=== PATIENT | male | born 1950 | race Caucasian/White ===

== ENCOUNTER 2023-02-08 15:56 | Emergency (ER) | payer MEDICARE, SELFPAY ==
[2023-02-08 16:07] VITALS: BP 186/84; PULSE 52; RESP 17; TEMP 36.6; O2SAT 98; BMI 31.5
[2023-02-08 17:09] LABS: Basophils # 0.1 10^3/uL (0.0-0.1); Basophils % 1.2 %; Eosinophils % 0.6 %; Hematocrit 43.3 % (37-53); Lymphocytes # 1.3 10^3/uL (0.8-4.8); Lymphocytes % 19.5 %; Mean Corpuscular HGB Conc 31.9 g/dL (30-55); Mean Corpuscular Hemoglobin 30.5 pg (27-33); Mean Corpuscular Volume 95.8 fl (82-101); Mean Platelet Volume 9.8 fL (7.4-10.4); Monocytes # 0.4 10^3/uL (0.2-0.9); Monocytes % 6.3 %; Neutrophils # 4.84 10^3/uL (1.8-7.7); Neutrophils % 72.1 %; Nucleated Red Blood Cells % 0 %; Platelet Count 207 10^3/cmm (157-399); Red Blood Count 4.52 10^6/uL (3.85-5.65); White Blood Count 6.71 10^3/uL (3.29-11.43)
[2023-02-08 17:30] LABS: Alanine Aminotransferase 31 U/L (0-41); Albumin Level 4.1 g/dL (3.5-5.2); Alkaline Phosphatase 50 U/L (40-130); Anion Gap 14.3 (5-19); Aspartate Amino Transferase 34 U/L (0-40); Blood Urea Nitrogen 9 mg/dL (8-23); Calcium 9.4 mg/dL (8.5-10.5); Carbon Dioxide 25 mmol/L (22-29); Chloride 104 mmol/L (98-107); Creatinine Clr Calc Pharmacy 100.2848; Globulin 2.7 g/dL (1.3-4.6); Glucose 97 mg/dL (65-115); Lipase 20 U/L (13-60); Osmolality Calculated 287 mOsm/kg (285-295); Potassium 4.3 mmol/L (3.5-5.1); Sodium 139 mmol/L (136-145); Total Bilirubin 0.8 mg/dL (0.15-1.2); Total Protein 6.8 g/dL (6.6-8.7)
[2023-02-08 17:34] LABS: Lactic Sepsis W/Reflex 0.9 mmol/L (0.5-2.2)
--- NOTE | 2023-02-08 17:41 | CTR_ITS ---
PROCEDURE INFORMATION: Exam: CT Abdomen And Pelvis With Contrast Exam date and time: 02/08/2023 6:05 PM Age: 72 years old Clinical indication: Abdominal pain; Generalized; Patient HX: Abd pain with constipation; Additional info: Constipation and right lower quadrant abdominal pain TECHNIQUE: Imaging protocol: Computed tomography of the abdomen and pelvis with contrast. Radiation optimization: All CT scans at this facility use at least one of these dose optimization techniques: automated exposure control; mA and/or kV adjustment per patient size (includes targeted exams where dose is matched to clinical indication); or iterative reconstruction. Contrast material: OMNI 350; Contrast volume: 100 ml; Contrast route: INTRAVENOUS (IV); REPORTING DATA: Count of CT and Cardiac NM exams in prior 12 months: This patient has received 0 known CTs and 0 known cardiac nuclear medicine studies in the 12 months prior to the current study. COMPARISON: MR abdomen wo/w con* [id number] 01/21/2018 10:37 AM RADIATION DOSE METRICS: Total DLP (mGy-cm): 904.46 FINDINGS: Lungs: No significant infiltrate or effusion is seen within the lung bases. Diaphragm: Small hiatal hernia, less prominent than 2018 exam. Liver: Normal. No mass. Gallbladder and bile ducts: Normal. No calcified stones. No ductal dilation. Pancreas: Normal. No ductal dilation. Spleen: Normal. No splenomegaly. Adrenal glands: Normal. No mass. Kidneys and ureters: Small rounded hypodense renal cortical foci suggestive of small renal cysts when correlated with previous exam. Tiny nonobstructing right renal calculus. No hydronephrosis or obstruction or perinephric stranding. Stomach and bowel: Mild colonic diverticulosis. No CT findings of diverticulitis or focal inflammatory change. Moderate stool volume. No small bowel dilatation or obstruction. No abnormal bowel wall thickening. No abnormal mesenteric stranding. Appendix: The appendix is visualized. No CT findings of appendicitis. Intraperitoneal space: No free fluid or ascites. No free air. Vasculature: [id number] atherosclerotic vascular disease. No significant aneurysmal dilatation of the abdominal. Major vascular segments appear patent. Lymph nodes: Unremarkable. No enlarged lymph nodes. Urinary bladder: Incomplete urinary bladder distention with wall thickening. Reproductive: Moderate prostate gland enlargement with mild impression on the base of the bladder. Bones/joints: Degenerative change with component of degenerative disc disease lumbar spine with mild levoscoliosis. Soft tissues: Mild umbilical hernia of fat and small inguinal hernias of fat, as noted with prior exam. CT/CT abdomen pelvis w con* [id number] IMPRESSION: 1. Tiny nonobstructing right renal calculus and suggestion of small renal cortical cysts when correlated with prior exam. No additional follow-up required. 2. Moderate prostate gland enlargement. 3. Urinary bladder wall thickening, which may be related to incomplete distention though can be associated with component of bladder outlet or bladder infection. 4. Mild colonic diverticulosis. Moderate stool volume which can be associated with constipation. 5. Small hiatal hernia, less prominent than previous exam of 2018. Mild umbilical hernia of fat.
[2023-02-08 17:42] LABS: Add Urine Microscopic? NO; Charge for UA Resulting for Rev
--- NOTE | 2023-02-08 17:44 | ED_ITS ---
HPI - Abdominal Pain 2 General: Chief Complaint: Abdominal Pain Stated Complaint: Dehydrated,constipated Time Seen by Provider: 02/08/23 17:05 History of Present Illness: Patient is a 72-year-old male with no significant past medical history who presents to the emergency department for evaluation of abdominal pain and constipation. Patient reports that he has been constipated for approximately 1 week. Patient reports that he is trialed MiraLAX, milk of magnesia, and prune juice with little relief of symptoms. Patient states that his constipation has worsened and he is now starting to have intermittent nausea and vomiting. Patient endorses 1 episode of emesis today. Patient currently rates his abdominal pain as a 5 out of 10 in severity that he describes as a cramping-like sensation. The majority of his pain is located in his right lower quadrant. Patient states that he is able to pass gas. He denies fever, chills, cough, congestion, dysuria, hematuria, chest pain, shortness of breath, palpitations, lightheadedness, dizziness, hematemesis, melena, hematochezia, or any other associated symptoms. Patient reports that he has had similar symptoms in the past that required admission. No other complaints at this time. Associated Symptoms: Reports constipation, nausea and vomiting; Denies chills, diarrhea, dysuria, fever(s) and hematuria Review of Systems 2 General: Reports: 10 or more systems reviewed and unremarkable except in HPI and below Const: Denies: fever(s), chills or body aches Eyes: Denies: change in vision or blurry vision ENMT: Denies: throat pain, ear or mastoid pain, ear discharge or nasal congestion Card: Denies: chest pain, palpitations or irregular heart rhythm Resp: Denies: dyspnea, productive cough, non-productive cough or wheezing GI: Reports: abdominal pain, nausea, vomiting and constipation; Denies: diarrhea : Denies: flank pain, dysuria or hematuria Musc: Denies: neck pain, back pain or extremity pain Skin/Breast: Denies: rash Neuro: Denies: headache(s), numbness in extremities, dizziness or vertigo Physical Exam 2 Const: COMMON NORMALS: no acute distress, average body habitus, patient oriented x3, no limitations and alert HENMT: COMMON NORMALS: normocephalic, atraumatic, moist oral mucous membranes and oropharynx normal HEAD & SCALP: normocephalic and atraumatic Eye: COMMON NORMALS: Equal, round and reactive pupils present, EOMs intact bilaterally, conjunctivae normal and no scleral icterus CONJUNCTIVA: Yes conjunctivae normal PUPIL: Yes Equal, round and reactive pupils present Neck/C-Spine: COMMON NORMALS: full ROM Chest: COMMONS NORMALS: normal inspection of the chest Resp: COMMON NORMALS: normal respiratory effort, No retractions, No use of accessory muscles and clear to auscultation bilaterally AUSCULTATION: clear to auscultation bilaterally Cardio: COMMON NORMALS: regular rate, regular rhythm, No gallops present (Cardio), No clicks present (Cardio) and No rub (Cardio) RATE: regular rate RHYTHM: regular rhythm OTHER: Systolic murmur is heard best over the aortic position. GI: OTHER: Hyperactive bowel sounds in all 4 quadrants. McBurney's point tenderness noted to palpation. No Montano sign, Rovsing sign, or peritoneal signs noted. No evidence of rebound tenderness. Extremity: OTHER: Moving bilateral upper and lower extremities without weakness or deficit. Neuro: COMMON NORMALS: patient oriented x3 SENSORIUM/ORIENTATION: Yes alert OTHER: No focal neurological deficits noted on examination. Sensation intact to the bilateral upper and lower extremities Course 2 Vital Signs: Vital signs: Vital Signs Temperature 98 F 02/08/23 16:07 Pulse Rate 52 L 02/08/23 16:07 Respiratory Rate 17 02/08/23 16:07 Blood Pressure 186/84 02/08/23 16:07 Pulse Oximetry 98 02/08/23 16:07 Oxygen Delivery Me thod Room Air 02/08/23 16:07 MDM - Abdominal Pain Medical Decision Making Patient is a 72-year-old male with no significant past medical history who presents to the emergency department for evaluation of abdominal pain and constipation. On physical examination patient is nontoxic and in no acute distress. Patient's heart rate did remain in the 50s throughout the ED course. Patient states that he normally has a low heart rate. EKG sinus bradycardia with nonspecific T wave abnormalities. Patient denies chest pain, palpitations, lightheadedness, dizziness, or shortness of breath of any kind. CBC, CMP, lipase, and urinalysis all grossly unremarkable. CT of the abdomen pelvis with contrast showed Tiny nonobstructing right renal calculus and suggestion of small renal cortical cysts when correlated with prior exam. No additional follow-up required. Moderate prostate gland enlargement. Urinary bladder wall thickening, which may be related to incomplete distention though can be associated with component of bladder outlet or bladder infection. Urinalysis showed no evidence of urinary tract infection. Mild colonic diverticulosis. Moderate stool volume which can be associated with constipation. Small hiatal hernia, less prominent than previous exam of 2018. Mild umbilical hernia of fat. Based off history and physical examination I do not believe the patient symptoms are emergent and warrant further emergent evaluation at this time. Symptoms likely related to constipation. I will treat with mag citrate and have the patient follow-up with his primary care provider. A prescription of magnesium citrate was sent to your pharmacy be picked up. Take medication as prescribed. See handout over generalize instructions. Increase oral hydration. Call your primary care provider tomorrow with an update of your symptoms and to schedule appointment for further management/evaluation. Return to the emergency department in the next 12 to 24 hours if any rapid or worsening symptoms to include but not limited to worsening abdominal pain, increased vomiting, fever, unable to have a bowel movement after taking the magnesium citrate, or as needed. Patient stated understanding of all discharge instructions was agreeable to plan of care. I discussed the patient's history, exam, and all findings with Dr. Jensen in the emergency department who agreed my assessment and plan. He did not feel the patient required admission or further evaluation at this time. Differential diagnosis includes but is not limited to constipation, obstruction, appendicitis, urinary tract infection, pancreatitis, nephrolithiasis, gastroenteritis Lab Data 02/08/23 17:00 02/08/23 17:00 Labs/Radiology: Radiology Impressions Abdomen/Pelvis CT 02/08/23 17:41 IMPRESSION: 1. Tiny nonobstructing right renal calculus and suggestion of small renal cortical cysts when correlated with prior exam. No additional follow-up required. 2. Moderate prostate gland enlargement. 3. Urinary bladder wall thickening, which may be related to incomplete distention though can be associated with component of bladder outlet or bladder infection. 4. Mild colonic diverticulosis. Moderate stool volume which can be associated with constipation. 5. Small hiatal hernia, less prominent than previous exam of 2018. Mild umbilical hernia of fat. Laboratory Results WBC 6.71 10^3/uL (3.29-11.43) 02/08/23 17:00 RBC 4.52 10^6/uL (3.85-5.65) 02/08/23 17:00 Hgb 13.80 g/dL (11.27-16.99) 02/08/23 17:00 Hct 43.3 % (37-53) 02/08/23 17:00 MCV 95.8 fl (82-101) 02/08/23 17:00 MCH 30.5 pg (27-33) 02/08/23 17:00 MCHC 31.9 g/dL (30-55) 02/08/23 17:00 RDW 13.0 % (12.1-15.1) 02/08/23 17:00 Plt Count 207 10^3/cmm (157-399) 02/08/23 17:00 MPV 9.8 fL (7.4-10.4) 02/08/23 17:00 Neut % (Auto) 72.1 % 02/08/23 17:00 Lymph % (Auto) 19.5 % 02/08/23 17:00 [place] % (Auto) 6.3 % 02/08/23 17:00 Eos % (Auto) 0.6 % 02/08/23 17:00 Baso % (Auto) 1.2 % 02/08/23 17:00 Neut # (Auto) 4.84 10^3/uL (1.8-7.7) 02/08/23 17:00 Lymph # (Auto) 1.3 10^3/uL (0.8-4.8) 02/08/23 17:00 [place] # (Auto) 0.4 10^3/uL (0.2-0.9) 02/08/23 17:00 Eos # (Auto) 0.0 10^3/uL (0.0-0.8) 02/08/23 17:00 Baso # (Auto) 0.1 10^3/uL (0.0-0.1) 02/08/23 17:00 Nucleated RBC % (auto) 0 % 02/08/23 17:00 Nucleated RBCs # 0.0 /100WBC 02/08/23 17:00 Sodium 139 mmol/L (136-145) 02/08/23 17:00 Potassium 4.3 mmol/L (3.5-5.1) 02/08/23 17:00 Chloride 104 mmol/L (98-107) 02/08/23 17:00 Carbon Dioxide 25 mmol/L (22-29) 02/08/23 17:00 Anion Gap 14.3 (5-19) 02/08/23 17:00 BUN 9 mg/dL (8-23) 02/08/23 17:00 Creatinine 0.7 mg/dL (0.7-1.2) 02/08/23 17:00 GFR Calculation Not Reportable 02/08/23 17:00 Glucose 97 mg/dL (65-115) 02/08/23 17:00 Calculated Osmolality 287 mOsm/kg (285-295) 02/08/23 17:00 Lactic Acid 0.9 mmol/L (0.5-2.2) 02/08/23 17:00 Calcium 9.4 mg/dL (8.5-10.5) 02/08/23 17:00 Total Bilirubin 0.8 mg/dL (0.15-1.2) 02/08/23 17:00 AST 34 U/L (0-40) 02/08/23 17:00 ALT 31 U/L (0-41) 02/08/23 17:00 Alkaline Phosphatase 50 U/L (40-130) 02/08/23 17:00 Total Protein 6.8 g/dL (6.6-8.7) 02/08/23 17:00 Albumin 4.1 g/dL (3.5-5.2) 02/08/23 17:00 Globulin 2.7 g/dL (1.3-4.6) 02/08/23 17:00 Lipase 20 U/L (13-60) 02/08/23 17:00 Urine Color Colorless (Yellow) 02/08/23 17:20 Urine Appearance Clear (CLEAR) 02/08/23 17:20 Urine pH 7 (5-7) 02/08/23 17:20 Ur Specific [place] 1.000 (1.005-1.030) L 02/08/23 17:20 Urine Protein Neg (Negative) 02/08/23 17:20 Urine Glucose (UA) Norm (Normal) 02/08/23 17:20 Urine Ketones Negative (Negative) 02/08/23 17:20 Urine Blood Neg (Negative) 02/08/23 17:20 Urine Nitrate Negative (Negative) 02/08/23 17:20 Urine Bilirubin Neg (Negative) 02/08/23 17:20 Urine Urobilinogen Norm mg/dL (Negative) 02/08/23 17:20 Ur Leukocyte Esterase Negative (Negative) 02/08/23 17:20 All radiology interpretation(s) finalized by discharge Discharge Plan Discharge Patient Disposition: Home Clinical Impression: Constipation Condition: Stable Prescriptions: New magnesium citrate Solution 150 ml PO ONCE Qty: 296 0RF Discharge Orders: Discharge ED (Routine); Ordered 02/08/23 Ordered By: Sekou Lakhani Referrals: Stephen Krishna MD [Primary Care Provider] - Patient Instructions: Constipation (ED) Activity Restrictions/Additional Instructions: A prescription of magnesium citrate was sent to your pharmacy be picked up. Take medication as prescribed. See handout over generalize instructions. Increase oral hydration. Call your primary care provider tomorrow with an update of your symptoms and to schedule appointment for further management/evaluation. Return to the emergency department in the next 12 to 24 hours if any rapid or worsening symptoms to include but not limited to worsening abdominal pain, increased vomiting, fever, unable to have a bowel movement after taking the magnesium citrate, or as needed. Coding Level of Care Code ED [facility]anger for Konstantin Wilkins
[2023-02-08 17:51] LABS: Bilirubin Urine Neg (Negative); Blood Urine Neg (Negative); Glucose Urine UA Norm (Normal); Ketones Urine Negative (Negative); Leukocyte Esterase Urine Negative (Negative); Nitrate Urine Negative (Negative); Protein Urine Neg (Negative); Urine Appearance Clear (CLEAR); Urine Color Colorless (Yellow); Urobilinogen Urine Norm (Negative); pH Urine 7 (5-7)
[2023-02-08] MEDS: iohexol 350 mg/mL 500 mL Btl (per mL) IV (18:09)
--- NOTE | 2023-02-08 19:36 | ECG_ITS ---
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 Measurements Intervals [place] Rate: 50 P: 10 DC: 159 QRS: 26 QRSD: 86 T: 14 QT: 443 QTc: 404 Interpretive Statements SINUS BRADYCARDIA NONSPECIFIC T-WAVE ABNORMALITY Compared to ECG 12/05/2017 07:06:26 T-wave abnormality now present Electronically Signed On 02-09-2023 5:55:50 PAROLE AGENT by Fanny Pruitt M.D. [id number]
== END 2023-02-08 20:09 | disposition home or self-care (01) ==
PROVIDERS: Physician Assistant; Emergency Provider Physician Assistant; PCP Family Medicine
DX: K59.00 Constipation, unspecified (principal); N20.0 Calculus of kidney; K57.30 Diverticulosis of large intestine without perforation or abscess without bleeding; K44.9 Diaphragmatic hernia without obstruction or gangrene
CPT/HCPCS: 36415; 74177; 80053; 81003; 83605; 83690; 85025; 93005; 99285; Q9967

== ENCOUNTER 2023-08-12 17:37 | Emergency (ER) | payer MEDICARE, SELFPAY ==
[2023-08-12 17:38] VITALS: BP 148/73; PULSE 59; RESP 14; TEMP 37.1; O2SAT 98
--- NOTE | 2023-08-12 17:39 | XRR_ITS ---
PROCEDURE INFORMATION: Exam: XR Chest Exam date and time: 08/12/2023 5:59 PM Age: 72 years old Clinical indication: Other: Syncope TECHNIQUE: Imaging protocol: Radiologic exam of the chest. Views: 1 view. COMPARISON: CR XR chest 2V* [id number] 12/05/2017 8:01 AM FINDINGS: Lungs: No consolidation. Subtle linear opacities in the left lung base are stable and may represent atelectasis or scarring. Pleural spaces: No pleural effusion or pneumothorax. Heart/Mediastinum: The cardiomediastinal silhouette is within normal limits. Bones/joints: No acute osseous abnormalities are seen. XR/XR chest 1V portable [id number] IMPRESSION: No acute cardiopulmonary disease.
[2023-08-12 19:01] LABS: Basophils # 0.1 10^3/uL (0.0-0.1); Basophils % 0.8 %; Eosinophils % 0.1 %; Hematocrit 43.7 % (37-53); Lymphocytes # 0.6 10^3/uL (0.8-4.8); Lymphocytes % 6.7 %; Mean Corpuscular Hemoglobin 31.8 pg (27-33); Mean Corpuscular Volume 96.5 fl (82-101); Mean Platelet Volume 9.9 fL (7.4-10.4); Monocytes # 0.4 10^3/uL (0.2-0.9); Monocytes % 4.5 %; Neutrophils % 87.7 %; Nucleated Red Blood Cells % 0 %; Platelet Count 177 10^3/cmm (157-399); Red Blood Count 4.53 10^6/uL (3.85-5.65); Red Cell Distribution Width 13.3 % (12.1-15.1); White Blood Count 9.12 10^3/uL (3.29-11.43)
--- NOTE | 2023-08-12 19:10 | ED_ITS ---
HPI - Syncope 2 General: Chief Complaint: Syncope Stated Complaint: syncope Time Seen by Provider: 08/12/23 19:00 History of Present Illness: 72-year-old male with no known medical p mercedez who presents to the emergency room with weakness, malaise and a near syncopal episode as he was coming into the emergency room. He had not been feeling well all day today. He became very lightheaded and his eyes went dark he says. He did not pass out completely and family was there to help him down. He says he has had multiple tick bites recently. Otherwise no chest pain. No abdominal pain. He did have a fever of 100.7 at home. No cough. No shortness of breath. No nausea or vomiting. No dysuria. No lower extremity swelling. No altered mental status. No focal motor deficits. Review of Systems 2 Narrative: Constitutional symptoms: Negative except as documented in HPI. Skin symptoms: Negative except as documented in HPI. Eye symptoms: Negative except as documented in HPI. ENMT symptoms: Negative except as documented in HPI. Respiratory symptoms: Negative except as documented in HPI. Cardiovascular symptoms: Negative except as documented in HPI. Gastrointestinal symptoms: Negative except as documented in HPI. Genitourinary symptoms: Negative except as documented in HPI. Musculoskeletal symptoms: Negative except as documented in HPI. Neurologic symptoms: Negative except as documented in HPI. Psychiatric symptoms: Negative except as documented in HPI. Endocrine symptoms: Negative except as documented in HPI. Physical Exam 2 Narrative: EXAM NARRATIVE: General: Alert, no acute distress. Skin: Warm, dry. Head: Normocephalic, atraumatic. Neck: Supple, trachea midline. Eye: Extraocular movements are intact. Ears, nose, mouth and throat: Tacky oral mucosa Cardiovascular: Regular, Normal peripheral perfusion. Respiratory: Lungs are clear to auscultation, respirations are non-labored, breath sounds are equal, Symmetrical chest wall expansion. Gastrointestinal: Soft, Nontender, Non distended, Normal bowel sounds. Musculoskeletal: Normal ROM, no deformity. Neurological: Alert and oriented, No focal neurological deficit observed. Psychiatric: Cooperative, appropriate mood & affect. Course 2 Vital Signs: Vital signs: Vital Signs Temperature 98.7 F 08/12/23 17:38 Pulse Rate 62 08/12/23 20:14 Respiratory Rate 18 08/12/23 20:14 Blood Pressure 111/76 08/12/23 20:14 Pulse Oximetry 91 08/12/23 20:14 Oxygen Delivery Me thod Room Air 08/12/23 17:38 MDM - Syncope Medical Decision Making Medical decision making: Differential diagnosis including but not limited to and based on the above HPI, review of systems and physical exam: This patient with weakness, near syncope and multiple tick bites checking basic lab work and urinalysis. Also chest x- ray. He also reported some fever at home. He is afebrile on presentation here. He had malaise. Orders placed to evaluate differential diagnosis based on the above differential, HPI and physical exam Lab Review: Laboratory results were reviewed and interpreted by myself the emergency room physician. Lab work is fairly unremarkable. White count is 9. Hemoglobin is 14. BUN and creatinine are 14 and 0.8. Urinalysis is clear. Chest x-ray: No acute process. No infiltrate. No pneumothorax. No cardiomegaly. This was reviewed and interpreted by myself the ER physician. I reviewed the patient's medical record. Reexamination: Patient remained stable. Blood pressure has been stable. Little on the soft side. Also has some dry oral mucosa so going to treat him for some dehydration. Given his history of tick bites, treating for tick disease with some doxycycline Assessment and plan: Tick bites Malaise Dehydration Near syncope -IV normal saline bolus and IV doxycycline. - Discharged home - Discussed plan with patient. Answered any questions. - Evaluation and treatment of this problem were appropriate in the emergency setting. Lab Data 08/12/23 18:55 08/12/23 18:55 Radiology Impressions Chest X-Ray 08/12/23 17:39 IMPRESSION: No acute cardiopulmonary disease. Laboratory Results WBC 9.12 10^3/uL (3.29-11.43) 08/12/23 18:55 RBC 4.53 10^6/uL (3.85-5.65) 08/12/23 18:55 Hgb 14.40 g/dL (11.27-16.99) 08/12/23 18:55 Hct 43.7 % (37-53) 08/12/23 18:55 MCV 96.5 fl (82-101) 08/12/23 18:55 MCH 31.8 pg (27-33) 08/12/23 18:55 MCHC 33.0 g/dL (30-55) 08/12/23 18:55 RDW 13.3 % (12.1-15.1) 08/12/23 18:55 Plt Count 177 10^3/cmm (157-399) 08/12/23 18:55 MPV 9.9 fL (7.4-10.4) 08/12/23 18:55 Neut % (Auto) 87.7 % 08/12/23 18:55 Lymph % (Auto) 6.7 % 08/12/23 18:55 [place] % (Auto) 4.5 % 08/12/23 18:55 Eos % (Auto) 0.1 % 08/12/23 18:55 Baso % (Auto) 0.8 % 08/12/23 18: Neut # (Auto) 8.00 10^3/uL (1.8-7.7) H 08/12/23 18:55 Lymph # (Auto) 0.6 10^3/uL (0.8-4.8) L 08/12/23 18:55 [place] # (Auto) 0.4 10^3/uL (0.2-0.9) 08/12/23 18:55 Eos # (Auto) 0.0 10^3/uL (0.0-0.8) 08/12/23 18:55 Baso # (Auto) 0.1 10^3/uL (0.0-0.1) 08/12/23 18:55 Nucleated RBC % (auto) 0 % 08/12/23 18: Nucleated RBCs # 0.0 /100WBC 08/12/23 18:55 Sodium 139 mmol/L (136-145) 08/12/23 18:55 Potassium 4.1 mmol/L (3.5-5.1) 08/12/23 18:55 Chloride 103 mmol/L (98-107) 08/12/23 18:55 Carbon Dioxide 26 mmol/L (22-29) 08/12/23 18:55 Anion Gap 14.1 (5-19) 08/12/23 18:55 BUN 14 mg/dL (8-23) 08/12/23 18:55 Creatinine 0.8 mg/dL (0.7-1.2) 08/12/23 18:55 GFR Calculation Not Reportable 08/12/23 18:55 Glucose 115 mg/dL (65-115) 08/12/23 18:55 Calculated Osmolality 289 mOsm/kg (285-295) 08/12/23 18:55 Calcium 8.3 mg/dL (8.5-10.5) L 08/12/23 18:55 Total Bilirubin 0.5 mg/dL (0.15-1.2) 08/12/23 18:55 AST 12 U/L (0-40) 08/12/23 18:55 ALT 10 U/L (0-41) 08/12/23 18:55 Alkaline Phosphatase 47 U/L (40-130) 08/12/23 18:55 Total Protein 6.7 g/dL (6.6-8.7) 08/12/23 18:55 Albumin 4.0 g/dL (3.5-5.2) 08/12/23 18:55 Globulin 2.7 g/dL (1.3-4.6) 08/12/23 18:55 Urine Color Yellow (Yellow) 08/12/23 19:47 Urine Appearance Clear (CLEAR) 08/12/23 19:47 Urine pH 6 (5-7) 08/12/23 19:47 Ur Specific [place] 1.020 (1.005-1.030) 08/12/23 19:47 Urine Protein Neg (Negative) 08/12/23 19:47 Urine Glucose (UA) Norm (Normal) 08/12/23 19:47 Urine Ketones Negative (Negative) 08/12/23 19:47 Urine Blood Neg (Negative) 08/12/23 19:47 Urine Nitrate Negative (Negative) 08/12/23 19:47 Urine Bilirubin Neg (Negative) 08/12/23 19:47 Urine Urobilinogen Norm mg/dL (Negative) 08/12/23 19:47 Ur Leukocyte Esterase Negative (Negative) 08/12/23 19:47 Urine RBC None /hpf (0-2) 08/12/23 19:47 Urine WBC 0-4 /hpf (0-5) H 08/12/23 19:47 Ur Squamous Epith Cells None /hpf (0-5) 08/12/23 19:47 Amorphous Sediment Not Reportable 08/12/23 19:47 Urine Bacteria Trace /hpf (NONE) 08/12/23 19:47 Urine Mucus 1+ /hpf 08/12/23 19:47 All radiology interpretation(s) finalized by discharge Discharge Plan Discharge Patient Disposition: Home Clinical Impression: Dehydration, Near syncope Tick bites Qualifiers: Encounter type: initial encounter Site of tick bite: unspecified site Qualified Code(s): W57.XXXA - Bitten or stung by nonvenomous insect and other nonvenomous arthropods, initial encounter Condition: Stable Prescriptions: New doxycycline monohydrate 100 mg capsule 100 mg PO BID 10 Days Qty: 20 0RF No Action magnesium citrate Solution 150 ml PO ONCE Qty: 296 0RF Discharge Orders: Discharge ED (Routine); Ordered 08/12/23 Ordered By: Christine William Referrals: Stephen Krishna MD [Primary Care Provider] - 4-7 days Discharge Diet: Usual diet Discharge Activity: Increase activity as tolerated Patient Instructions: Tick Bite (ED) Activity Restrictions/Additional Instructions: Thank you for choosing [facility] for your healthcare needs today. Please realize this is an emergency room and that we are providing you with a medical screening exam and this may not be complete and all inclusive of all the testing and or work up that you may need to determine your ailment or severity of your illness. You have been screened and evaluated and felt safe for discharge. Health conditions do change or evolve sometimes and as such it is important that you follow up with your Primary Doctor to be re checked, 3-5 days is a general good time frame for follow up. You are always welcome to return to the ED for re assessment if your symptoms are worsening or you have new concerns Coding Level of Care Code ED [facility] for Konstantin Wilkins
[2023-08-12 19:20] LABS: Alanine Aminotransferase 10 U/L (0-41); Alkaline Phosphatase 47 U/L (40-130); Anion Gap 14.1 (5-19); Aspartate Amino Transferase 12 U/L (0-40); Blood Urea Nitrogen 14 mg/dL (8-23); Calcium 8.3 mg/dL (8.5-10.5); Carbon Dioxide 26 mmol/L (22-29); Chloride 103 mmol/L (98-107); Creatinine Clr Calc Pharmacy 100.2848; Globulin 2.7 g/dL (1.3-4.6); Glucose 115 mg/dL (65-115); Osmolality Calculated 289 mOsm/kg (285-295); Potassium 4.1 mmol/L (3.5-5.1); Sodium 139 mmol/L (136-145); Total Bilirubin 0.5 mg/dL (0.15-1.2); Total Protein 6.7 g/dL (6.6-8.7)
[2023-08-12 19:36] VITALS: BP 120/69; PULSE 64; RESP 18; O2SAT 94
[2023-08-12 19:44] VITALS: BP 118/66; BP 122/73; BP 136/73; PULSE 64; PULSE 69; PULSE 71
[2023-08-12 20:14] VITALS: BP 111/76; PULSE 62; RESP 18; O2SAT 91
[2023-08-12 20:17] LABS: Bacteria Urine TRACE /hpf; Bilirubin Urine Neg (Negative); Blood Urine Neg (Negative); Glucose Urine UA Norm (Normal); Ketones Urine Negative (Negative); Leukocyte Esterase Urine Negative (Negative); Mucus Urine 1+ /hpf; Nitrate Urine Negative (Negative); Protein Urine Neg (Negative); Urine Appearance Clear (CLEAR); Urine Color Yellow (Yellow); Urobilinogen Urine Norm (Negative); WBC Urine 0-4 /hpf (0-5); pH Urine 6 (5-7)
[2023-08-12 20:18] LABS: Add Urine Culture? No
[2023-08-12] MEDS: sodium chloride 0.9% 1,000 ML 999 ML IV (20:44)
[2023-08-12] MEDS: doxycycline 100 MG in sodium chloride 0.9% (plus) 100 ML IV (20:45)
[2023-08-12 20:48] VITALS: BP 122/75; PULSE 54; RESP 18; O2SAT 99
[2023-08-12 21:33] VITALS: BP 140/81; PULSE 63; RESP 18; O2SAT 100
== END 2023-08-12 21:59 | disposition home or self-care (01) ==
PROVIDERS: Emergency Medicine; Emergency Provider Emergency Medicine; PCP Family Medicine
DX: R55 Syncope and collapse (principal); E86.0 Dehydration; W57.XXXA Bitten or stung by nonvenomous insect and other nonvenomous arthropods, initial encounter
CPT/HCPCS: 36415; 71045; 80053; 81001; 85025; 96374; 99285; J3490; J7030

== ENCOUNTER → 2023-08-15 08:36 | Outpatient (BNVA) | payer MEDICARE, OTHER, SELFPAY | PROVIDERS: PCP Family Medicine; Visit Provider Nurse Practitioner Family | DX: Z12.5 Encounter for screening for malignant neoplasm of prostate (principal); R53.83 Other fatigue | CPT/HCPCS: 80061; 82607; 83036; 83735; 84443; G0103 ==

== ENCOUNTER 2023-09-11 12:15 | Outpatient (CLI) | payer MEDICARE, OTHER, SELFPAY ==
--- NOTE | 2023-09-11 12:45 | USCV_ITS ---
Lalit Vidales Age: 72 Gender: M : 1950 Exam Date: 09/11/2023 12:30 Ordering Phys: Cecy Pennington PRESIDENT AND CEO Technologist: Exam [place] [facility] [place]: murmur BP: 140 / 75 HR: 59 Rhythm: Sinus Technical Quality: Adequate MEASUREMENTS (Male / Female) Normal Values 2D ECHO LV Diastolic Diameter PLAX 4.2 cm 4.2 - 5.9 / 3.9 - 5.3 cm LV Systolic Diameter PLAX 3.5 cm IVS Diastolic Thickness 1.2 cm 0.6 - 1.0 / 0.6 - 0.9 cm IVS Systolic Thickness 1.7 cm LVPW Diastolic Thickness 1.4 cm 0.6 - 1.0 / 0.6 - 0.9 cm LVPW Systolic Thickness 1.8 cm LVOT Diameter 2.1 cm LV Ejection Fraction 2D Teich 33.8 % LV Ejection Fraction MOD 2C 71.4 % LV Ejection Fraction 2C AL 72.5 % LA Diameter 4.1 cm RA Systolic Volume 4C AL 54.5 ml RA Systolic Volume 4C MOD 54.2 ml Aorta at Sinotubular Diameter 3.3 cm IVC Diameter 2.5 cm M-MODE LA Ao Ratio MM 1.0 AV Cusp Separation MM 1.7 cm DOPPLER AV Peak Velocity 355.0 cm/s LVOT Peak Velocity 103.0 cm/s AV Area Cont Eq vti 1.0 cm squared AV Area Cont Eq pk 1.0 cm squared MV Peak Velocity 101.0 cm/s MV Area PHT 2.9 cm squared Mitral E to A Ratio 1.0 TV Peak Velocity 251.0 cm/s TR Peak Velocity 348.0 cm/s TR Peak Gradient 48.4 mmHg TV Peak E Velocity 84.0 cm/s Right Atrial Pressure 3.0 mmHg Pulmonary Artery Systolic Pressu 51.4 mmHg PV Peak Velocity 124.0 cm/s FINDINGS Left Ventricle Normal left ventricular size, systolic function and wall thickness, with no regional wall motion abnormalities. Grade I/IV diastolic dysfunction (abnormal relaxation filling pattern), normal to mildly elevated filling pressures. Left ventricular ejection fraction is estimated at 65 %. Right Ventricle Normal right ventricular size and systolic function. Moderate pulmonary hypertension, RVSP 51.4 mmHg. Right Atrium The right atrium is normal in size. Left Atrium Mildly increased left atrial size. Mitral Valve Structurally normal mitral valve. Mild-moderate mitral valve regurgitation. Aortic Valve Structurally normal trileaflet aortic valve. Mild aortic valve calcification. Moderate aortic valve stenosis, mean gradient 23.7 mmHg, HARESH 1 cm squared. [id number] aortic valve regurgitation. Tricuspid Valve Structurally normal tricuspid valve. Mild tricuspid valve regurgitation. Pulmonic Valve Pulmonic valve not well visualized. Pericardium Normal pericardium without effusion. Aorta Proximal aorta diameter 3.45 cm IVC The inferior vena cava appears normal. CONCLUSIONS Normal left ventricular size, systolic function and wall thickness, with no regional wall motion abnormalities. Grade I/IV diastolic dysfunction (abnormal relaxation filling pattern), normal to mildly elevated filling pressures. Left ventricular ejection fraction is estimated at 65 %. Normal right ventricular size and systolic function. Moderate pulmonary hypertension, RVSP 51.4 mmHg. Mildly increased left atrial size. Structurally normal mitral valve. Mild-moderate mitral valve regurgitation. Structurally normal trileaflet aortic valve. Mild aortic valve calcification. Moderate aortic valve stenosis, mean gradient 23.7 mmHg, HARESH 1 cm squared. [id number] aortic valve regurgitation. Proximal aorta diameter 3.45 cm. There are no prior echocardiogram studies to compare. Dr. Morro Rios MD (Electronically Signed) Final Date: 11 September 2023 19:12 S
== END 2023-09-11 12:16 | disposition home or self-care (01) ==
LOC: RAD 12:16
PROVIDERS: PCP Family Medicine; Visit Provider Nurse Practitioner Family
DX: I50.30 Unspecified diastolic (congestive) heart failure (principal); I27.0 Primary pulmonary hypertension; I34.0 Nonrheumatic mitral (valve) insufficiency; I35.0 Nonrheumatic aortic (valve) stenosis; I35.1 Nonrheumatic aortic (valve) insufficiency; R01.1 Cardiac murmur, unspecified
CPT/HCPCS: 80061; 82607; 83036; 83735; 84443; 93306; G0103

== ENCOUNTER → 2023-12-09 15:49 | Outpatient (BNVA) | payer MEDICARE, OTHER, SELFPAY | PROVIDERS: PCP Family Medicine; Referring Provider Nurse Practitioner Family; Visit Provider Internal Medicine Cardiovascular Disease | DX: R07.9 Chest pain, unspecified (principal); I35.0 Nonrheumatic aortic (valve) stenosis; R06.09 Other forms of dyspnea; I10 Essential (primary) hypertension; E11.9 Type 2 diabetes mellitus without complications; R53.82 Chronic fatigue, unspecified; I27.20 Pulmonary hypertension, unspecified; Z87.891 Personal history of nicotine dependence; R00.1 Bradycardia, unspecified; I51.7 Cardiomegaly | CPT/HCPCS: 93005; 99205 ==

== ENCOUNTER 2024-01-03 07:25 | Outpatient (CLI) | payer MEDICARE, OTHER, SELFPAY ==
[2024-01-03 07:50] VITALS: BMI 31.5
--- NOTE | 2024-01-03 08:18 | ECG_ITS ---
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 Interpretive Statements Lung unchanged pre/post procedure; Intraprocedure shortess of breath; Symptoms resoled by discharge PROCEDURE: At the baseline, the EKG revealed sinus bradycardia with a rate of [address] changes in the inferior and anterolateral leads. The baseline heart was 45 bpm with a blood pressue of 148/85 mm of Hg Lexiscan was infused over a period of 20 seconds. A total of 0.4 milligrams of Lexiscan was infused. The stress phase was continued for a total of 5 minutes. Heart rate at the end of the stress phase was 45 bpm with a blood pressure 148/85 mm of Hg. The EKG at the peak infusion revealed no significant changes. Sestamibi was injected 20 seconds after the Lexiscan infusion. Heart rate at the end of the recovery phase was 53 bpm with a blood pressure of 108/63mm of Hg. CONCLUSION: 1. No significant EKG changes with the LexiScan infusion 2. No LexiScan induced chest pain or cardiac arrhythmia 3. Normal blood pressure and heart rate response 4. Sestamibi/sestamibi perfusion scan pending; see separate report Electronically Signed On 01-05-2024 22:26:55 CDT by Eli Da Silva M.D. [email or web address]
--- NOTE | 2024-01-03 08:18 | NMCV_ITS ---
NM arin perf SPECT r/s* [id number] Lalit Vidales Age: 73 Gender: M : 1950 Exam Date: 01/03/2024 08:22 Ordering Phys: Eli Da Silva MD ([email or web address]) Technologist: ARIANA Geronimo Exam Location: [facility] Indications: cp STRESS TEST [facility] IMAGE PROTOCOL Rest/Stress 1 Lexiscan Day Radiopharmaceutical Dose (mCi) Administration Site Administered by Rest: Tc-99m 8.7 IV ARIANA Flannery Sestamibi Stress:Tc-99m 27.3 IV ARIANA Flannery Sestamibi Rest: 03-Jan-2024 60 Discovery 630 Stress: 03-Jan-2024 30 Discovery 630 0.4mg Lexiscan. Images obtained in supine and prone position. SPECT RESULTS Technical Quality: Good Raw Data Analysis: Normal Image Corrections: No attenuation or motion correction applied Summed Stress Score: 3 Summed Rest Score: 1 Summed Difference Score: 2 PERFUSION FINDINGS A small area of slightly decreased tracer uptake involving the apical inferior, apical lateral and LV apex. Some reversibility was noted in the LV apex and inferior wall region. However with the prone imaging, no significant reversibility was noted. FUNCTIONAL RESULTS (calculated via Gated SPECT) Stress Image LV EF (%): 50 Stress EDV (mL):141 TID: 0.95 Stress ESV (mL):71 FUNCTIONAL FINDINGS: Segmental wall motion analysis revealed mild hypokinesis of the LV apex. Mildly dilated LV cavity IMPRESSIONS 1. Myocardial perfusion imaging revealing a small area of reversibile defect in the apical inferior and LV apex with the supine imaging, suggesting ischemia in the distribution of the right coronary artery. However because of the inconsistency with the prone imaging, the reliability is questionable. Clinical correlation is recommended 2. Normal LV ejection fraction of 50%. 3. LV wall motion analysis revealing mild hypokinesia of the LV apex 4. Mildly dilated LV cavity with an end-systolic volume of 71 mL No similar previous studies are available for comparison. Dr Eli Da Silva MD [facility] (Electronically Signed) Final Date: 03 January 2024 12:33 S
[2024-01-03] MEDS: regadenoson 0.4 Mg/5 ml Syringe IVP (09:14)
[2024-01-03 09:51] VITALS: BP 108/63; PULSE 54
== END 2024-01-03 07:26 | disposition home or self-care (01) ==
LOC: CDL 07:26
PROVIDERS: PCP Family Medicine; Visit Provider Internal Medicine Cardiovascular Disease
DX: Z98.61 Coronary angioplasty status (principal); R94.39 Abnormal result of other cardiovascular function study
CPT/HCPCS: 36415; 78452; 93017; 96374; A9500; J2785

== ENCOUNTER → 2024-04-03 09:39 | Outpatient (BNVA) | payer MEDICARE, OTHER, SELFPAY | PROVIDERS: PCP Family Medicine; Visit Provider Nurse Practitioner Family | DX: I35.0 Nonrheumatic aortic (valve) stenosis (principal); R06.09 Other forms of dyspnea; I10 Essential (primary) hypertension; E11.9 Type 2 diabetes mellitus without complications; R53.82 Chronic fatigue, unspecified; I27.20 Pulmonary hypertension, unspecified; Z87.891 Personal history of nicotine dependence | CPT/HCPCS: 99213 ==

== ENCOUNTER → 2024-09-21 10:39 | Outpatient (BNVA) | payer MEDICARE, OTHER, SELFPAY | PROVIDERS: PCP Family Medicine; Visit Provider Internal Medicine Cardiovascular Disease | DX: R40.0 Somnolence (principal); I27.20 Pulmonary hypertension, unspecified; R53.82 Chronic fatigue, unspecified; E11.9 Type 2 diabetes mellitus without complications; I35.0 Nonrheumatic aortic (valve) stenosis; I10 Essential (primary) hypertension; Z87.891 Personal history of nicotine dependence | CPT/HCPCS: 36415; 80053; 84443; 85025; 99214 ==

== ENCOUNTER 2024-09-29 13:49 | Outpatient (CLI) | payer MEDICARE, OTHER, SELFPAY ==
--- NOTE | 2024-09-29 13:58 | USCV_ITS ---
Lalit Vidales Age: 73 Gender: M : 1950 Exam Date: 09/29/2024 14:15 Ordering Phys: Keiry Adorno NP Technologist: LORRAINE Exam Location: [facility] – [place] Indication: Aortic Stenosis BP: 157 / 99 HR: 52 Rhythm: Sinus Technical Quality: Adequate MEASUREMENTS (Male / Female) Normal Values 2D ECHO LV Diastolic Diameter PLAX 5.3 cm 4.2 - 5.9 / 3.9 - 5.3 cm IVS Diastolic Thickness 1.3 cm 0.6 - 1.0 / 0.6 - 0.9 cm IVS Systolic Thickness 2.0 cm LVPW Diastolic Thickness 1.5 cm 0.6 - 1.0 / 0.6 - 0.9 cm LVPW Systolic Thickness 2.2 cm LVOT Diameter 2.2 cm LV Ejection Fraction 2D Teich 66.3 % LV Ejection Fraction MOD 4C 68.7 % LV Ejection Fraction MOD 2C 59.6 % LV Ejection Fraction 2C AL 63.0 % LA Diameter 4.1 cm RA Systolic Volume 4C AL 49.0 ml RA Systolic Volume 4C MOD 48.0 ml LA Sys Volume AL 56.6 cm cubed LA Sys Volume Index AL 23.8 cm cubed/m squared Aorta at Sinotubular Diameter 3.1 cm IVC Diameter 2.0 cm M-MODE LA Ao Ratio MM 1.2 AV Cusp Separation MM 1.5 cm DOPPLER AV Peak Velocity 365.3 cm/s LVOT Peak Velocity 120.0 cm/s AV Area Cont Eq vti 1.6 cm squared AV Area Cont Eq pk 1.2 cm squared MV Peak Velocity 104.0 cm/s MV Area PHT 2.7 cm squared Mitral E to A Ratio 0.4 TV Peak Velocity 181.5 cm/s TR Peak Velocity 284.0 cm/s TR Peak Gradient 32.3 mmHg TV Peak E Velocity 56.0 cm/s PV Peak Velocity 88.0 cm/s FINDINGS Left Ventricle Normal left ventricular size, systolic function and wall thickness, with no regional wall motion abnormalities. Left ventricular ejection fraction is estimated at 60 %. Grade I/IV diastolic dysfunction (abnormal relaxation filling pattern), normal to mildly elevated filling pressures. Right Ventricle The right ventricle is normal in size and function. Right Atrium The right atrium is normal in size. Left Atrium Mildly increased left atrial size. Mitral Valve Structurally normal mitral valve without significant stenosis or prolapse. There is no mitral regurgitation. Aortic Valve Severe aortic valve calcification. Moderate aortic valve stenosis, mean gradient 24.5 mmHg, HARESH 1.6 cm squared. Trace aortic valve regurgitation. Tricuspid Valve Structurally normal tricuspid valve without significant stenosis or regurgitation. Pulmonary artery systolic pressure is normal. Pulmonic Valve Structurally normal pulmonic valve without significant stenosis. There is no pulmonic regurgitation. Pericardium Normal pericardium without effusion. Aorta Normal ascending aorta dimension. IVC The inferior vena cava appears normal. CONCLUSIONS Normal left ventricular size, systolic function and wall thickness, with no regional wall motion abnormalities. Left ventricular ejection fraction is estimated at 60 %. Grade I/IV diastolic dysfunction (abnormal relaxation filling pattern), normal to mildly elevated filling pressures. Severe aortic valve calcification. Moderate aortic valve stenosis, mean gradient 24.5 mmHg, HARESH 1.6 cm squared. Trace aortic valve regurgitation. ' Mildly increased left atrial size. There is no pericardial effusion. Right atrial pressure is around 5 mm of mercury. Osman Gaines MD (Electronically Signed) Final Date: 02 October 2024 20:53 S
== END 2024-09-29 13:50 | disposition home or self-care (01) ==
LOC: RAD 13:50
PROVIDERS: PCP Family Medicine; Visit Provider Nurse Practitioner Family
DX: I35.0 Nonrheumatic aortic (valve) stenosis (principal); R93.1 Abnormal findings on diagnostic imaging of heart and coronary circulation; I51.7 Cardiomegaly; I35.8 Other nonrheumatic aortic valve disorders
CPT/HCPCS: 93306

== ENCOUNTER 2024-11-16 19:57 | Outpatient (CLI) | payer MEDICARE, OTHER, SELFPAY | END 2024-11-16 19:58 | disposition home or self-care (01) | LOC: SLEEP 19:58 | PROVIDERS: PCP Family Medicine; Visit Provider Internal Medicine Pulmonary Disease | DX: G47.33 Obstructive sleep apnea (adult) (pediatric) (principal) | CPT/HCPCS: 95810 ==